=== PATIENT | male | born 2005 | race Caucasian/White ===

== ENCOUNTER 2024-05-27 12:32 | Emergency (ER) | payer OTHER ==
[~2024-05-27] VITALS: Ht 167.6 cm; Wt 119.0 kg
[2024-05-27 12:43] VITALS: O2SAT 96
[2024-05-27 12:45] VITALS: TEMP 36.8; O2SAT 100
[2024-05-27 14:57] VITALS: BP 126/78; PULSE 94; RESP 18
[2024-05-27] MEDS: KETOROLAC 30MG/ML VIAL IM ONE (14:57)
[2024-05-27] MEDS: ONDANSETRON 4MG ODT PO ONE (14:58)
[2024-05-27] MEDS: LIDOCAINE HCL/EPINEPHRINE 1%-EPI 1:100,000 20ML VIAL INFIL ONE (14:58)
== END 2024-05-27 15:52 | disposition home or self-care (01) ==
LOC: ER 12:32
DX: S01.81XA Laceration without foreign body of other part of head, initial encounter (principal); M54.9 Dorsalgia, unspecified; Z98.890 Other specified postprocedural states; W18.39XA Other fall on same level, initial encounter; Y92.89 Other specified places as the place of occurrence of the external cause; Y93.55 Activity, bike riding; Y99.8 Other external cause status
CPT/HCPCS: 70450; 70486; 12001; 96372; 99285; Q0162; J1885; J2004; Z7610 ×2

== ENCOUNTER 2024-06-04 10:40 | Emergency (ER) | payer OTHER ==
[~2024-06-04] VITALS: Ht 167.6 cm; Wt 61.2 kg
[2024-06-04 10:51] VITALS: BP 119/68; TEMP 36.8; O2SAT 100
[2024-06-04 10:52] VITALS: PULSE 102; RESP 22; O2SAT 99
== END 2024-06-04 11:29 | disposition home or self-care (01) ==
LOC: ER 10:40
DX: S01.91XD Laceration without foreign body of unspecified part of head, subsequent encounter (principal); X58.XXXD Exposure to other specified factors, subsequent encounter
CPT/HCPCS: 99281; Z7610